=== PATIENT | male | born 1970 | race Two or more races ===

== ENCOUNTER 2017-06-24 09:41 | Day surgery (SDC) | payer OTHER ==
[~2017-06-24 09:41] MED LIST: Buffered Lidocaine 0.9% SYRIN* 5 ML/SYR SYRINGE INTRADERM ONE; Dexamethasone IV* 4 MG/ML 1 ML (4 MG) IV SLOW PU ONE; Famotidine IV* 10 MG/ML 2 ML (20 mg) IV ONE
[2017-06-24] MEDS ORDERED: Dexamethasone IV* 4 MG/ML 1 ML (4 MG) ONE (10:10)
[2017-06-24] MEDS ORDERED: Bupivacaine 0.25% SDV* 30 ML ONE (13:49)
[2017-06-24] MEDS ORDERED: fentaNYL* 50 MCG/ML 2 ML VIAL (100 MCG VIAL) ONE (13:52)
[2017-06-24] MEDS ORDERED: Midazolam* 1 MG/ML 5 ML VIAL (5 MG) ONE (13:53)
[2017-06-24] MEDS ORDERED: PROCHLORPERAZINE INJ 5 MG/ML 2 ML VIAL IV PRN (13:54)
[2017-06-24] MEDS ORDERED: Naloxone* 0.4 MG/ML 1 ML VIAL IV PRN (13:54)
[2017-06-24] MEDS ORDERED: fentaNYL* 50 MCG/ML 2 ML VIAL (100 MCG VIAL) IV PRN (13:54)
[2017-06-24] MEDS ORDERED: Ketorolac INJ* 30 MG/ML 1 ML VIAL IV PRN (13:54)
[2017-06-24] MEDS ORDERED: HYDROcodone/ACETAMIN 5-325 MG* 1 TAB PO PRN (13:54)
[2017-06-24] MEDS ORDERED: Midazolam* 1 MG/ML 2 ML VIAL (2 MG) ONE (14:03)
[2017-06-24 14:34] VITALS: BP 137/70
--- NOTE | 2017-06-25 13:47 | OP ---
DATE OF OPERATION: 06/24/17 [facility] DATE OF : 66 SURGEON: Jay David MD CLAIM ADMINISTRATOR: JEREMIAH Gonsales ANESTHESIOLOGIST: Dr. Abdul. ANESTHESIA: Local MAC. PRE-OP DIAGNOSES: 1. Right trigger thumb. 2. Right thumb tendon sheath A1 shirin nearly 1 cm nodular mass. POST-OP DIAGNOSES: 1. Right trigger thumb. 2. Right thumb tendon sheath A1 shirin nearly 1 cm nodular mass. OPERATIVE PROCEDURE: 1. Excision of right thumb A1 shiirn tendon sheath mass. 2. Right thumb A1 shirin trigger thumb release. INDICATIONS: Godwin has recurrent trigger finger with a nodular mass at the A1 shirin of the thumb. It has continued to enlarge. It is quite painful. It is frankly triggering despite injections. We talked about risks and benefits. He wanted to proceed with surgery. ESTIMATED BLOOD LOSS: 2 mL. COMPLICATIONS: None. FINDINGS: As expected. DESCRIPTION OF PROCEDURE: Godwin was seen in the preoperative holding area. We came back to the operating room, he got some anesthesia. The operative area was anesthetized with 0.25% plain Marcaine. The arm was prepped and dapped in the usual fashion and a time-out was performed. I exsanguinated the arm with the Esmarch and the tourniquet was inflated to 250 mmHg. I made a transverse incision in the right thumb MP joint flexion crease. Full-thickness flaps were raised bluntly and the retractor was Ragnell retractor. The large mass was immediately visualized and was freed up of its soft tissue around its periphery and then amputated at the base of the A1 shirin. It was handed off as a specimen. I then made an incision with a 15 blade through the A1 shirin. This was extended proximally and distally with a tenotomy scissors. Once the stricture was released and there was no more catching of the tendon, we irrigated out the wound. Skin was closed with 4-0 nylon suture. Wound was dressed, tourniquet was deflated, and he was taken to recovery room in stable condition. [id number]/[facility] #: [id number] MTDD
== END 2017-06-24 14:49 | disposition home or self-care (01) ==
LOC: OREAST 09:41
PROVIDERS: ATTEND Orthopaedic Surgery Hand Surgery
DX: M65.311 Trigger thumb, right thumb (principal); M67.441 Ganglion, right hand; I10 Essential (primary) hypertension; K21.9 Gastro-esophageal reflux disease without esophagitis; Z72.0 Tobacco use
CPT/HCPCS: 88304; J1100; J2250; J3010

== ENCOUNTER 2017-11-08 07:44 | Day surgery (SDC) | payer OTHER ==
[~2017-11-08 07:44] MED LIST changes: -Dexamethasone IV* 4 MG/ML 1 ML (4 MG) IV SLOW PU ONE
[2017-11-08] MEDS ORDERED: Famotidine IV* 10 MG/ML 2 ML (20 mg) ONE (08:03)
[2017-11-08] MEDS ORDERED: ceFAZolin 2 GM PREMIX (*) 2 GM/50 ML BAG IVPB ONE (08:04)
[2017-11-08] MEDS ORDERED: fentaNYL* 50 MCG/ML 2 ML VIAL (100 MCG VIAL) ONE ×3 (08:19→14:04)
[2017-11-08] MEDS ORDERED: Midazolam* 1 MG/ML 5 ML VIAL (5 MG) ONE (08:19)
[2017-11-08] MEDS ORDERED: DiMENhydriNATE IV* 50 MG/ML VIAL IV PUSH PRN (10:34)
[2017-11-08] MEDS ORDERED: Acetaminophen TAB* 325 MG PO PRN (10:34)
[2017-11-08] MEDS ORDERED: Naloxone* 0.4 MG/ML 1 ML VIAL IV PRN (10:34)
[2017-11-08] MEDS ORDERED: ROPIVACAINE 5 MG/ML 30 ML BTL (0.5%) ONE (10:35)
[2017-11-08] MEDS ORDERED: Dexamethasone IV* 4 MG/ML 1 ML (4 MG) ONE (11:07)
[2017-11-08] MEDS ORDERED: Lidocaine 2% PF * 5 ML VIAL ONE (11:07)
[2017-11-08] MEDS ORDERED: Ketorolac INJ* 30 MG/ML 1 ML VIAL ONE (11:07)
[2017-11-08] MEDS ORDERED: Ondansetron INJ* 2 MG/ML VIAL ONE (11:07)
[2017-11-08] MEDS ORDERED: Propofol* 10 MG/ML 20 ML BTL IV PUSH ONE (11:07)
[2017-11-08 13:32] VITALS: BP 160/95
[2017-11-08] MEDS ORDERED: Acetaminophen TAB* 325 MG ONE (13:36)
[2017-11-08] MEDS ORDERED: DiMENhydriNATE IV* 50 MG/ML VIAL ONE (13:49)
[2017-11-08] MEDS: fentaNYL* 50 MCG/ML 2 ML VIAL (100 MCG VIAL) IV PRN ×2 (14:05→15:01)
[2017-11-08] MEDS ORDERED: traMADol TAB* 50 MG PO ONE (15:32)
[2017-11-08] MEDS ORDERED: traMADol TAB* 50 MG ONE (15:43)
--- NOTE | 2017-11-08 23:35 | OP ---
DATE OF OPERATION: 11/08/17 - [facility] DATE OF : 66 SURGEON: Jay David MD DRY PLASTERER: JEREMIAH Gonsales ANESTHESIOLOGIST: Dr. Higginbotham. ANESTHESIA: General. PRE-OP DIAGNOSES: 1. Left wrist stage 2 SLAC wrist. 2. Left dorsal wrist osteochondroma. POST-OP DIAGNOSES: 1. Left wrist stage 3 SLAC wrist. 2. Left dorsal wrist osteochondroma. OPERATIVE PROCEDURE: 1. Left wrist scaphoid excision. 2. Left wrist four-corner fusion using mini Acutrak screws x2. 3. Left wrist posterior interosseous nerve neurectomy. 4. Excision of left dorsal wrist osteochondroma. INDICATIONS: Godwin has a few things going on with the wrist. He has a very large palpable dorsal wrist osteochondroma of the dorsal distal radius. Additionally, he has a stage 2 SLAC wrist, preoperatively I thought he had a stage 2 SLAC wrist, he is very symptomatic. We talked about risks and benefits , he wanted to proceed with treatment. He understands there is a risk of nonunion, of infection, of persistent pain despite doing surgery, of tendon injury, of neurovascular injury. Certainly there are other risks. He wished to proceed. ESTIMATED BLOOD LOSS: 5 mL. COMPLICATIONS: None. FINDINGS: See above and below. DESCRIPTION OF PROCEDURE: Godwin was seen in the preoperative holding area. The correct site, side, and procedure were identified. He came back to the operating room, the arm was prepped and draped in the usual fashion. A time- out was performed. I began by exsanguinating the arm. The Esmarch and the tourniquet was inflated to 250 mmHg. I made a longitudinal incision over the dorsal midline. Dissection was carried down to the extensor retinaculum and full thickness flaps were raised off of the extensor retinaculum. The extensor retinaculum was released over what normally be the third dorsal compartment. It is difficult to tell because of the dorsal distal radius and osteochondroma. I retracted the fourth dorsal compartment tendons ulnarly. It ended up at the third dorsal compartment tendon, actually went through a bone tunnel on the ulnar aspect of the osteochondroma. Full thickness flaps were raised off the osteochondroma. This was excised in its entirety using the osteotome and the rongeur. This was handed off as a specimen. I then had the third dorsal compartment tendon freed up. I raised retinacular flaps radially and ulnarly. The second and third dorsal compartment tendons were retracted radially. The remainder of the tendons were retracted ulnarly. I raised a distally based U- capsular flap to expose the dorsum of the carpus. There was full thickness cartilage loss noted in the scaphoid facet and on the proximal pole of the proximal hamate and to a lesser extent the cavity. The scaphoid was excised in its entirety. Once the scaphoid was completely removed, I turned my attention to preparing the articular surfaces. I used a zonia and a rongeur to excise all the articular cartilage off of the articular surfaces of the capital lunate, the hamate triquetral, the capital hamate and the lunotriquetral joints. This was a 2.4 mm zonia. Once all of the joint surfaces were prepared, I reduced the fusion, I prudentially pinned it in place and then checked the reduction. The lunate was out of extension and the DISI deformity was corrected. I therefore placed a mini Acutrak guidewire, I measured it and drilled and then placed a mini Acutrak screw from the proximal lunate down into the capitate. I then placed a second guidewire beginning in the triquetrum crossing the proximal aspect of the hamate and into the capitate. This was measured and placed. I then checked my alignment. Ultimately both screws were couple of mm too long. So, I had to remove the screws and switch them for screws that were shorter. Ultimately, I ended up using a 24 mm mini Acutrak screw and a 28-mm mini Acutrak screw. At this point, the compression was excellent, the apposition was excellent. I took my bone graft from my scaphoid and packed as much cancellous bone graft into all the fusion surfaces as possible. Once everything was completely tied and nicely compressed, we irrigated out the wound. At this point, I went ahead and dissected out my posterior interosseous nerve. I excised a 2 cm segment of this and this was sent as a specimen to pathology. With the osteochondroma out and the posterior and osseous nerve excised and a 4- corner fusion done, I went ahead and again irrigated everything out. The capsule was closed with 4-0 Prolene suture. The retinaculum was closed with 4-0 Prolene suture leaving the EDM and EPL tendons transposed. The skin was closed with 3-0 Monocryl and Steri-Strips. 0.2% ropivacaine was infiltrated all around the operative area. The wounds were appropriately dressed and a cock -up wrist splint was applied using both dorsal and volar plaster slabs. Tourniquet was deflated, the hand pinked up immediately. He was woken up and taken to the recovery room in stable condition. [id number]/[facility] #: [id number] MTDD
--- NOTE | 2017-11-09 08:15 | RAD ---
CPT II Codes: G9500 Indication: Left wrist scaphoid excision. Approximately 23 seconds of fluoroscopy time was used. Fluoroscopic services provided for referring physician for scaphoid resection and wrist fusion. IMPRESSION: Fluoroscopic services provided for referring physician for scaphoid excision and fusion of the wrist.
== END 2017-11-08 15:56 | disposition home or self-care (01) ==
LOC: OR 07:44
PROVIDERS: ATTEND Orthopaedic Surgery Hand Surgery
DX: M19.032 Primary osteoarthritis, left wrist (principal); D16.02 Benign neoplasm of scapula and long bones of left upper limb; Z87.891 Personal history of nicotine dependence; I10 Essential (primary) hypertension; Z79.899 Other long term (current) drug therapy
CPT/HCPCS: 88302; 88304; 88311; A9270-GY; C1713; C1769; J0690; J1100; J1240; J1885; J2250; J2405; J2704; J2795; J3010